=== PATIENT | female | born 1980 | race Caucasian/White ===

== ENCOUNTER 2019-01-11 12:00 | Emergency (ER) | payer BC ==
[2019-01-11] MEDS ORDERED: NS 0.9% 1000 ML** 1,000 ML IV ONE (12:52)
[2019-01-11] MEDS ORDERED: Ketorolac INJ* 30 MG/ML 1 ML VIAL IV ONE (12:52)
--- NOTE | 2019-01-11 12:58 | ED ---
Abdominal Pain/Female - HPI Summary HPI Summary: 38-year-old female with a significant past medical history of Graves' disease status post thyroidectomy presents to the emergency department today with sudden onset 8 out of 10 colicky left upper quadrant and back pain. She states the pain "comes and goes in waves" of these waves last seconds to minutes. She states the pain is worse when she takes a deep breath or when she sits down. She reports taking 600 mg of ibuprofen one hour prior to arrival with minimal relief. She denies history of kidney stones or hypercalcemia or hyperparathyroidism. She endorses feelings of nausea due to her symptoms. She denies fever, vomiting, chest pain, abdominal pain, shortness of breath. - History of Current Complaint Chief Complaint: EDFlankPain Stated Complaint: SEVERE BACK PAIN PER PT Time Seen by Provider: 01/11/19 12:33 Hx Obtained From: Patient Hx Last Menstrual Period: 09/19 Onset/Duration: Sudden Onset, Lasting Hours Timing: Frequency Of Episodes Severity Initially: Severe Severity Currently: Severe Pain Intensity: 8 Pain Scale Used: 0-10 Numeric Location: Flank - Left flank Radiates: Yes Radiates to: Back - Left side Character: Sharp, Cramping, Colicy Aggravating Factor(s): Movement, Deep Breaths Alleviating Factor(s): Position - standing, OTC Analgesics - 600mg ibuprofen, Medications Associated Signs and Symptoms: Negative: Diaphoresis, Fever, Cough, Chest Pain, Dizzy, Back Pain, Constipation, Blood in Stool, Urinary Symptoms, Vomiting, Diarrhea Allergies/Adverse Reactions: Allergies Allergy/AdvReac Type Severity Reaction Status Date / Time egg Allergy Vomiting Verified 01/11/19 12:07 Egg Derived Allergy Vomiting Verified 01/11/19 12:07 egg yolk Allergy Vomiting Verified 01/11/19 12:07 latex Allergy Rash Verified 01/11/19 12:07 morphine Allergy Anaphylatic Verified 01/11/19 12:07 Shock Penicillins Allergy Anaphylatic Verified 01/11/19 12:07 Shock soy Allergy Rash Verified 01/11/19 12:07 sulfite Allergy Anaphylatic Verified 01/11/19 12:07 Shock propanolol Allergy Anaphylatic Uncoded 01/11/19 12:07 Shock Home Medications: Home Medications clonazePAM TAB(*) [KlonoPIN TAB(*)] 0.25 mg PO TID PRN 01/11/19 [History Confirmed 01/11/19] PMH/Surg Hx/FS Hx/Imm Hx Endocrine/Hematology History: Reports: Hx Thyroid Disease - graves disease postop Denies: Hx Anticoagulant Therapy, Hx Blood Disorders, Hx Blood Transfusions, Hx Bone Marrow Disease, Hx Diabetes, Hx Systemic Lupus Erythematosus, Hx Anemia , Hx Unexplained Bleeding Cardiovascular History: Denies: Hx Congestive Heart Failure, Hx Hypertension, Hx Pacemaker/ICD, Other Cardiovascular Problems/Disorders Respiratory History: Reports: Hx Asthma, Hx Chronic Bronchitis, Hx Pneumonia, Hx Seasonal Allergies Denies: Hx Chronic Obstructive Pulmonary Disease (COPD), Hx Sleep Apnea, Other Respiratory Problems/Disorders GI History: Reports: Other GI Disorders - ULCER History: Denies: Hx Dialysis, Hx Renal Disease Musculoskeletal History: Reports: Hx Arthritis, Hx Fibromyalgia - Dx 12/01 Denies: Hx Rheumatoid Arthritis, Hx Back Problems, Hx Bursitis, Hx Congenital Bone Abnormalities, Hx Gout, Hx Orthopedic Injury, Hx Osteoporosis, Hx Scoliosis, Hx Tendonitis Sensory History: Reports: Hx Vision Problem Denies: Hx Cataracts, Hx Contacts or Glasses, Hx Eye Injury - pmh of eye injury, Hx Eye Prosthesis, Hx Glaucoma, Hx Macular Degeneration, Hx Deafness, Hx Hearing Aid, Hx Hearing Problem, Other Sensory Impairments Opthamlomology History: Reports: Hx Vision Problem Denies: Hx Cataracts, Hx Contacts or Glasses, Hx Eye Injury - pmh of eye injury, Hx Eye Prosthesis, Hx Glaucoma, Hx Macular Degeneration, Other Sensory Impairments Neurological History: Reports: Hx Headaches, Hx Migraine, Other Neuro Impairments/Disorders - Trigeminal neuralgia Denies: Hx Dementia, Hx Developmental Delay, Hx Seizures, Hx Spinal Cord Injury, Hx Transient Ischemic Attacks (TIA) Psychiatric History: Reports: Hx Anxiety, Hx Depression, Hx Post Traumatic Stress Disorder Denies: Hx Attention Deficit Hyperactivity Disorder, Hx Eating Disorder, Hx Panic Disorder, Hx Inpatient Treatment, Hx Community Mental Health Tx, Hx Schizophrenia, Hx Bipolar Disorder, Hx Suicide Attempt, Hx Substance Abuse, Other Psychiatric Issues/Disorders - Cancer History Cancer Type, Location and Year: cervical cancer Hx Chemotherapy: No Hx Radiation Therapy: No - Surgical History Surgery Procedure, Year, and Place: c-sect 2008,thyroidectomy-graves dx 2009 Hx Anesthesia Reactions: Yes - Immunization History Date of Tetanus Vaccine: PT STATES UNKNOWN Date of Influenza Vaccine: NONE Infectious Disease History: No Infectious Disease History: Reports: Hx Shingles - 2007 Denies: Hx Clostridium Difficile, Hx Hepatitis, Hx Human Immunodeficiency Virus (HIV), Hx Tuberculosis, Traveled Outside the [place] in Last 30 Days - Family History Known Family History: Positive: Other - thyroid d/o, parkinson's - Social History Alcohol Use: None Substance Use Type: Reports: None Hx Tobacco Use: No Smoking Status (MU): Former Smoker Type: Cigarettes Have You Smoked in the Last Year: No Review of Systems Constitutional: Negative Eyes: Negative ENT: Negative Cardiovascular: Negative Respiratory: Negative Positive: Abdominal Pain, Nausea. Negative: Vomiting, Diarrhea Positive: flank pain, pain Musculoskeletal: Negative Skin: Negative Neurological: Negative Psychological: Normal All Other Systems Reviewed And Are Negative: Yes Physical Exam Triage Information Reviewed: Yes Vital Signs On Initial Exam: Initial Vitals Temp Pulse Resp BP Pulse Ox 98.0 F 82 20 160/102 100 01/11/19 12:01 01/11/19 12:01 01/11/19 12:01 01/11/19 12:01 01/11/19 12:01 Vital Signs Reviewed: Yes Appearance: Positive: Well-Appearing, Well-Nourished, Pain Distress Skin: Positive: Warm, Skin Color Reflects Adequate Perfusion Head/Face: Positive: Normal Head/Face Inspection Eyes: Positive: EOMI, ALEC ENT: Positive: Hearing grossly normal Respiratory/Lung Sounds: Positive: Clear to Auscultation, Breath Sounds Present Cardiovascular: Positive: RRR, S1, S2 Abdomen Description: Positive: No Organomegaly, Soft, CVA Tenderness (L). Negative: Distended, Guarding, McBurney's Point Tenderness, Peritoneal Signs Bowel Sounds: Positive: Present Musculoskeletal: Positive: Strength/ROM Intact Neurological: Positive: Sensory/Motor Intact, Alert, Oriented to Person Place, Time, Normal Gait, Speech Normal Psychiatric: Positive: Normal AVPU Assessment: Alert Procedures - Sedation Patient Received Moderate/Deep Sedation with Procedure: No Diagnostics - Vital Signs Vital Signs Temp Pulse Resp BP Pulse Ox 01/11/19 12:01 98.0 F 82 20 160/102 100 - Laboratory Result Diagrams: 01/11/19 13:05 01/11/19 13:06 Lab Statement: Any lab studies that have been ordered have been reviewed, and results considered in the medical decision making process. Abdominal Pain Fem Course/Dx - Course Course Of Treatment: Patient was evaluated in the emergency Department for chief complaint of left-sided flank pain. The patient was seen and examined. Her vitals were stable and she was afebrile. Laboratory studies and a noncontrast CT of the abdomen and pelvis was performed for kidney stone. The patient was given 10 mg of IV Toradol for her pain and 1 L of normal saline. Laboratory results showed no evidence of anemia, leukocytosis, electrolyte abnormalities, evidence of urinary tract infection or blood in the urine. CT scan of the abdomen and pelvis showed no evidence of hydroureter or renal calculi. There are no abnormal masses or fluid collections noted. Patient worsens feeling significantly better after being given Toradol and after producing a urine sample. She states she may have "passed the stone". Due to the lack of significant findings she can be discharged to home with follow-up by her primary care provider in the next 1-2 days. She agrees to this plan. She was told to return to the emergency department immediately if she developed any new or worsening symptoms. - Diagnoses Differential Diagnosis: Positive: Abdominal Aortic Aneurysm, Ovarian Cyst, Peptic Ulcer Disease, Renal Colic, Urinary Tract Infection Provider Diagnoses: Flank pain Discharge ED - Sign-Out/Discharge Documenting (check all that apply): Patient Departure - Discharge Plan Condition: Stable Disposition: HOME Patient Education Materials: Flank Pain (ED) Referrals: Mariela Ibarra MD [Primary Care Provider] - 1 Day Additional Instructions: You were seen in the emergency department today due to left-sided flank pain. Your laboratory results as well as the CT scan of your abdomen revealed no evidence of any acute pathology requiring immediate medical intervention including kidney stone. It is possible that while urinating in the emergency department you passed a stone however further workup should be done by primary care provider. You may take ibuprofen 600 mg every 6 hours as needed for pain. If you develop any new or worsening symptoms please return to emergency department immediately. - Billing Disposition and Condition Condition: STABLE Disposition: Home
[2019-01-11 13:11] LABS: ABS Basophils 0.1 10^3/ul (0-0.2); ABS Eosinophils 0.1 10^3/ul (0-0.6); ABS Lymphocytes 2.8 10^3/ul (1.0-4.8); ABS Monocytes 0.5 10^3/ul (0-0.8); ABS Neutrophils 4.7 10^3/ul (1.5-7.7); Eosinophil % 0.8 %; Hematocrit 44 % (35-47); Hemoglobin 15.1 g/dL (12.0-16.0); Lymphocyte % 34.6 %; Mean Corpuscular HGB Conc 34 g/dL (31-36); Mean Corpuscular Hemoglobin 30 pg (27-31); Mean Corpuscular Volume 89 fL (80-97); Mean Platelet Volume 7.3 fL (7.4-10.4); Platelet Count 365 10^3/uL (150-450); Red Cell Distribution Width 13 % (10-15); White Blood Count 8.1 10^3/uL (3.5-10.8)
[2019-01-11 13:33] LABS: ALT 20 U/L (7-52); AST 16 U/L (13-39); Albumin 4.5 g/dL (3.2-5.2); Albumin/Globulin Ratio 1.4 (1-3); Alkaline Phosphatase 70 U/L (34-104); Anion Gap 9 mmol/L (2-11); BUN/Creatinine Ratio 14.1 (8-20); Blood Urea Nitrogen 12 mg/dL (6-24); CO2 Carbon Dioxide 23 mmol/L (22-32); Calcium 9.8 mg/dL (8.6-10.3); Chloride 104 mmol/L (101-111); EGFR African American 89.6 (>60); EGFR Non-African American 74.1 (>60); Globulin 3.3 g/dL (2-4); Glucose 94 mg/dL (70-100); Potassium 4.3 mmol/L (3.5-5.0); Sodium 136 mmol/L (135-145); Total Protein 7.8 g/dL (6.4-8.9)
[2019-01-11 13:39] LABS: HCG Pregnancy < 0.60 mIU/mL
[2019-01-11 14:55] LABS: Urine Appearance Clear; Urine Bilirubin Negative (Negative); Urine Blood Negative (Negative); Urine Color Straw; Urine Glucose Negative (Negative); Urine Ketones Negative (Negative); Urine Nitrite Negative (Negative); Urine Protein Negative (Negative); Urine Specific Gravity 1.002 (1.010-1.030); Urine Urobilinogen Negative (Negative)
[2019-01-11 15:13] VITALS: BP 124/70
== END 2019-01-11 15:12 | disposition home or self-care (01) ==
LOC: ED 12:00
DX: R10.12 Left upper quadrant pain (principal); R11.0 Nausea; Z91.012 Allergy to eggs; Z91.040 Latex allergy status; Z88.5 Allergy status to narcotic agent; Z88.0 Allergy status to penicillin; Z91.09 Other allergy status, other than to drugs and biological substances; Z87.891 Personal history of nicotine dependence
CPT/HCPCS: 36415; 74176; 80053; 81003; 84702; 85025; 96361; 96374; 99283; J1885

== ENCOUNTER 2021-10-06 11:51 | Inpatient (IN) ==
[2021-10-06 13:35] LABS: ABS Lymphocytes 1.1 10^3/ul (1.0-4.8); ABS Monocytes 0.9 10^3/ul (0-0.8); ABS Neutrophils 12.9 10^3/ul (1.5-7.7); Eosinophil % 0.1 %; Hematocrit 44 % (35-47); Lymphocyte % 7.6 %; Mean Corpuscular HGB Conc 34 g/dL (31-36); Mean Corpuscular Hemoglobin 31 pg (27-31); Mean Corpuscular Volume 91 fL (80-97); Mean Platelet Volume 7.3 fL (7.4-10.4); Platelet Count 341 10^3/uL (150-450); Red Blood Count 4.81 10^6 /uL (3.70-4.87); Red Cell Distribution Width 14 % (10-15)
[2021-10-06] MEDS ORDERED: Prochlorperazine 5 mg/ml 2 ml VIAL (10 mg) IV ONE (14:14)
[2021-10-06] MEDS ORDERED: Lactated Ringers 1000 ml BAG 1,000 ML IV ONE (14:14)
[2021-10-06 14:42] LABS: Albumin 4.5 g/dL (3.2-5.2); Albumin/Globulin Ratio 1.8 (1-3); Calcium 9.3 mg/dL (8.6-10.3); Globulin 2.5 g/dL (2-4); Potassium 4.4 mmol/L (3.5-5.0); Total Bilirubin 0.6 mg/dL (0.2-1.0); eGFR CKD-EPI 110.8 (>60)
[2021-10-06 22:29] LABS: C Reactive Protein 35.1 mg/L (<8.01)
[2021-10-06] MEDS ORDERED: Vancomycin 1,500 MG in NS 0.9% 250 ml 250 ML IVPB SCH (22:34)
[2021-10-06] MEDS ORDERED: NS 0.9% 1000 ml BAG 1,000 ML IV SCH (22:45)
[2021-10-06] MEDS ORDERED: Vancomycin 1,750 MG in NS 0.9% 500 ml BAG 500 ML IVPB ONE (23:00)
[2021-10-06] MEDS: Acetaminophen IV 1 GM/100ML 1,000 MG/100 ML BAG IV PRN (23:23)
[2021-10-06] MEDS ORDERED: Vancomycin per Pharmacy 1 EA NOTE FOLLOW UP PRN (23:45)
[2021-10-07] MEDS: Aztreonam 2 GM in NS 0.9% 100 ml BAG 100 ML IV SCH ×2 (00:20→08:29)
[2021-10-07 05:54] LABS: ABS Basophils 0.1 10^3/ul (0-0.2); ABS Lymphocytes 1.5 10^3/ul (1.0-4.8); ABS Monocytes 0.8 10^3/ul (0-0.8); ABS Neutrophils 7.3 10^3/ul (1.5-7.7); Eosinophil % 0.1 %; Hematocrit 41 % (35-47); Lymphocyte % 15.1 %; Mean Corpuscular HGB Conc 34 g/dL (31-36); Mean Corpuscular Hemoglobin 31 pg (27-31); Mean Corpuscular Volume 91 fL (80-97); Mean Platelet Volume 7.3 fL (7.4-10.4); Platelet Count 305 10^3/uL (150-450); Red Blood Count 4.53 10^6 /uL (3.70-4.87); Red Cell Distribution Width 15 % (10-15); White Blood Count 9.6 10^3/uL (3.5-10.8)
[2021-10-07 06:12] LABS: Albumin 4.1 g/dL (3.2-5.2); Albumin/Globulin Ratio 1.9 (1-3); Calcium 8.9 mg/dL (8.6-10.3); Globulin 2.2 g/dL (2-4); Total Bilirubin 0.5 mg/dL (0.2-1.0); Total Protein 6.3 g/dL (6.4-8.9); eGFR CKD-EPI 112.8 (>60)
[2021-10-07] MEDS: Acetaminophen IV 1 GM/100ML 1,000 MG/100 ML BAG IV PRN ×2 (08:03→22:17)
[2021-10-07] MEDS: Vancomycin 1000 MG in NS 0.9% 250 ML IVPB SCH ×2 (11:18→18:51)
[2021-10-07] MEDS ORDERED: Acetaminophen IV 1 GM/100ML 1,000 MG/100 ML BAG IV ONE (11:37)
[2021-10-07] MEDS ORDERED: Prochlorperazine 5 mg/ml 2 ml VIAL (10 mg) ONE (12:44)
[2021-10-07] MEDS ORDERED: fentaNYL 100 mcg/2 ml 50 MCG/ML VIAL ONE (12:45)
[2021-10-07] MEDS: cefTRIAXone 2 gm/50 mL D5W 2 GM/50 ML BAG IV SCH ×2 (12:52→22:34)
[2021-10-07 14:37] LABS: Body Fluid Source Cerebral Spinal
[2021-10-07 14:45] LABS: Body Fluid Appearance Clear; Body Fluid Color Colorless; CSF Tube # 4
[2021-10-07 14:52] LABS: CSF Glucose 61 mg/dL (40-70)
[2021-10-07 15:13] LABS: Urine Benzodiazepine Screen None Detected (None Detect); Urine Cannabinoids Screen Presumptive Positive (None Detect); Urine Opiates Screen None Detected (None Detect)
[2021-10-07 15:14] LABS: Urine Appearance Clear; Urine Bilirubin Negative (Negative); Urine Blood Negative (Negative); Urine Color Yellow; Urine Glucose Negative (Negative); Urine Ketones Negative (Negative); Urine Protein Negative (Negative); Urine Specific Gravity 1.025 (1.005-1.030)
[2021-10-07 15:15] LABS: Urine Nitrite Negative (Negative); Urine Urobilinogen 0.2 (Negative) (Negative)
[2021-10-07 15:38] LABS: Body Fluid WBC 342 /mcL
[2021-10-07 15:41] LABS: Body Fluid Mono 24 %; Body Fluid Total Cells Counted 200
[2021-10-08] MEDS: Vancomycin 1000 MG in NS 0.9% 250 ML IVPB SCH ×2 (02:13→15:20)
[2021-10-08 05:48] LABS: Hematocrit 37 % (35-47); Hemoglobin 12.7 g/dL (12.0-16.0); Mean Corpuscular HGB Conc 34 g/dL (31-36); Mean Corpuscular Hemoglobin 32 pg (27-31); Mean Corpuscular Volume 93 fL (80-97); Red Blood Count 4.03 10^6 /uL (3.70-4.87); Red Cell Distribution Width 15 % (10-15); White Blood Count 8.8 10^3/uL (3.5-10.8)
[2021-10-08 05:49] LABS: ABS Lymphocytes 2.1 10^3/ul (1.0-4.8); ABS Monocytes 0.8 10^3/ul (0-0.8); ABS Neutrophils 5.8 10^3/ul (1.5-7.7); Eosinophil % 0.4 %; Lymphocyte % 24.3 %; Nucleated Red Blood Cells % 0.1
[2021-10-08 06:06] LABS: CO2 Carbon Dioxide 19 mmol/L (22-32); Calcium 8.4 mg/dL (8.6-10.3); Chloride 107 mmol/L (101-111); Magnesium 2.2 mg/dL (1.9-2.7); Sodium 134 mmol/L (135-145)
[2021-10-08 06:08] LABS: Anion Gap 8 mmol/L (2-11)
[2021-10-08 06:11] LABS: Blood Urea Nitrogen 15 mg/dL (6-24); Glucose 108 mg/dL (70-100); eGFR CKD-EPI 111.1 (>60)
[2021-10-08 06:17] LABS: Mean Platelet Volume 8.1 fL (7.4-10.4); Platelet Count 288 10^3/uL (150-450)
[2021-10-08] MEDS ORDERED: Vancomycin Trough Check NOTE FOLLOW UP ONE (09:30)
[2021-10-08 10:22] LABS: Vancomycin Trough 9.9 mcg/mL; eGFR CKD-EPI 112.8 (>60)
[2021-10-08] MEDS: Vancomycin 1,250 MG in NS 0.9% 250 ml 250 ML IVPB SCH ×2 (11:11→19:19)
[2021-10-08] MEDS: cefTRIAXone 2 gm/50 mL D5W 2 GM/50 ML BAG IV SCH ×2 (14:59→17:22)
[2021-10-08] MEDS: Acetaminophen IV 1 GM/100ML 1,000 MG/100 ML BAG IV PRN (16:49)
[2021-10-09] MEDS: Acetaminophen IV 1 GM/100ML 1,000 MG/100 ML BAG IV PRN ×3 (01:55→17:51)
[2021-10-09] MEDS: Vancomycin 1,250 MG in NS 0.9% 250 ml 250 ML IVPB SCH ×3 (02:27→18:17)
[2021-10-09] MEDS: cefTRIAXone 2 gm/50 mL D5W 2 GM/50 ML BAG IV SCH ×2 (03:57→16:40)
[2021-10-09] MEDS ORDERED: Vancomycin Trough Check NOTE FOLLOW UP ONE (10:00)
[2021-10-09 10:08] LABS: Hematocrit 38 % (35-47); Hemoglobin 12.9 g/dL (12.0-16.0); Mean Corpuscular HGB Conc 34 g/dL (31-36); Mean Corpuscular Hemoglobin 30 pg (27-31); Mean Corpuscular Volume 90 fL (80-97); Mean Platelet Volume 7.3 fL (7.4-10.4); Platelet Count 290 10^3/uL (150-450); Red Blood Count 4.24 10^6 /uL (3.70-4.87); Red Cell Distribution Width 14 % (10-15); White Blood Count 6.4 10^3/uL (3.5-10.8)
[2021-10-09 10:56] LABS: Calcium 8.8 mg/dL (8.6-10.3); Magnesium 2.1 mg/dL (1.9-2.7); Vancomycin Trough 15.3 mcg/mL; eGFR CKD-EPI 106.3 (>60); eGFR CKD-EPI 108.1 (>60)
[2021-10-09] MEDS ORDERED: Ondansetron 4 mg VIAL 2 MG/ML 2 ml VIAL IV PRN (13:12)
[2021-10-09] MEDS: Nystatin SUSPENSION 100,000 UNITS/ML UDC PO SCH ×3 (13:15→22:41)
[2021-10-09] MEDS: Enoxaparin 40 MG/0.4 ML SYR SUBCUT SCH (13:16)
[2021-10-10] MEDS: Acetaminophen IV 1 GM/100ML 1,000 MG/100 ML BAG IV PRN ×3 (02:54→22:36)
[2021-10-10] MEDS: Vancomycin 1,250 MG in NS 0.9% 250 ml 250 ML IVPB SCH ×3 (03:13→18:02)
[2021-10-10 06:05] LABS: Hematocrit 38 % (35-47); Hemoglobin 13.1 g/dL (12.0-16.0); Mean Corpuscular HGB Conc 34 g/dL (31-36); Mean Corpuscular Hemoglobin 31 pg (27-31); Mean Corpuscular Volume 90 fL (80-97); Mean Platelet Volume 7.4 fL (7.4-10.4); Platelet Count 304 10^3/uL (150-450); Red Blood Count 4.21 10^6 /uL (3.70-4.87); Red Cell Distribution Width 14 % (10-15); White Blood Count 7.2 10^3/uL (3.5-10.8)
[2021-10-10 06:20] LABS: Calcium 8.7 mg/dL (8.6-10.3); Magnesium 2.1 mg/dL (1.9-2.7); Potassium 3.9 mmol/L (3.5-5.0); eGFR CKD-EPI 111.1 (>60)
[2021-10-10] MEDS: cefTRIAXone 2 gm/50 mL D5W 2 GM/50 ML BAG IV SCH ×2 (06:31→15:03)
[2021-10-10] MEDS: Nystatin SUSPENSION 100,000 UNITS/ML UDC PO SCH ×4 (08:53→20:26)
[2021-10-10 10:31] LABS: Anaplasma phagocytophilum Negative (Negative); B. miyamotoi PCR, B Negative (Negative); Babesia divergens/MO-1 Negative (Negative); Babesia ducani Negative (Negative); Ehrlichia chaffeensis Negative (Negative); Ehrlichia ewingii/canis Negative (Negative); Ehrlichia muris eauclairensis Negative (Negative)
[2021-10-10] MEDS: Enoxaparin 40 MG/0.4 ML SYR SUBCUT SCH (12:59)
[2021-10-11] MEDS: Vancomycin 1,250 MG in NS 0.9% 250 ml 250 ML IVPB SCH ×3 (04:36→19:23)
[2021-10-11] MEDS: cefTRIAXone 2 gm/50 mL D5W 2 GM/50 ML BAG IV SCH ×2 (04:37→15:59)
[2021-10-11 06:26] LABS: eGFR CKD-EPI 93.7 (>60)
[2021-10-11] MEDS: Nystatin SUSPENSION 100,000 UNITS/ML UDC PO SCH ×4 (09:43→19:23)
[2021-10-11] MEDS: Acetaminophen IV 1 GM/100ML 1,000 MG/100 ML BAG IV PRN ×2 (09:43→18:13)
[2021-10-11] MEDS: Enoxaparin 40 MG/0.4 ML SYR SUBCUT SCH (13:41)
[2021-10-12] MEDS: Vancomycin 1,250 MG in NS 0.9% 250 ml 250 ML IVPB SCH ×2 (01:44→11:21)
[2021-10-12] MEDS: cefTRIAXone 2 gm/50 mL D5W 2 GM/50 ML BAG IV SCH ×2 (03:48→18:17)
[2021-10-12] MEDS: Acetaminophen IV 1 GM/100ML 1,000 MG/100 ML BAG IV PRN (09:26)
[2021-10-12] MEDS: Nystatin SUSPENSION 100,000 UNITS/ML UDC PO SCH ×4 (09:34→20:32)
[2021-10-12] MEDS ORDERED: Vancomycin Trough Check NOTE FOLLOW UP ONE (10:00)
[2021-10-12 10:49] LABS: Vancomycin Trough 18.1 mcg/mL; eGFR CKD-EPI 106.3 (>60)
[2021-10-12] MEDS ORDERED: Vancomycin 1000 MG in NS 0.9% 250 ML IVPB SCH (12:00)
[2021-10-12] MEDS: Enoxaparin 40 MG/0.4 ML SYR SUBCUT SCH (13:55)
[2021-10-12] MEDS ORDERED: Vancomycin 1,500 MG in NS 0.9% 250 ml 250 ML IVPB ONE (17:30)
[2021-10-12 21:09] VITALS: BP 120/72
[2021-10-13 14:00] LABS: Varicella IgG Antibody Index 2.1; Varicella-Zoster IgG Antibody Positive
[2021-10-14] MEDS ORDERED: Vancomycin Trough Check NOTE FOLLOW UP ONE (11:30)
[2021-10-14 14:00] LABS: Herpesvirus 6 DNA (PCR) Negative (Negative)
[2021-10-14 16:30] LABS: Varicella-Zoster IgM Antibody Negative (Negative)
== END 2021-10-12 20:50 | disposition home or self-care (01) | DRG 50 ==
LOC: ED 11:51 → EDHOLD 22:42 → SUATTDRO 22:42 → MEDTELE 10-07 01:19
PROVIDERS: ADMIT Hospitalist; ATTEND Family Medicine